=== PATIENT | female | born 1950 | race Hispanic/Latino ===

== ENCOUNTER → 2019-11-29 | Outpatient (CLI) | payer OTHER | END | disposition home or self-care (01) | LOC: OIH 07:33 | PROVIDERS: ATTEND Internal Medicine | DX: I10 Essential (primary) hypertension (principal) | CPT/HCPCS: 71046 ==

== ENCOUNTER → 2022-03-02 | Outpatient (CLI) | payer OTHER | END | disposition home or self-care (01) | LOC: RAH 09:29 | PROVIDERS: ATTEND Internal Medicine | DX: M17.0 Bilateral primary osteoarthritis of knee (principal); M71.20 Synovial cyst of popliteal space [Baker], unspecified knee ==

== ENCOUNTER 2023-11-29 07:18 | Emergency (ER) | payer OTHER ==
[~2023-11-29] VITALS: Ht 149.9 cm; Wt 55.3 kg
[2023-11-29 07:54] LABS: BASOPHILS # (AUTO) 0.02 K/uL (0.00-0.20); BASOPHILS % (AUTO) 0.2 % (0.0-5.0); EOSINOPHILS # (AUTO) 0.19 K/uL (0.00-0.70); EOSINOPHILS % (AUTO) 1.6 % (0.0-8.0); HEMATOCRIT 35.3 % (36-48); IMMATURE GRANULOCYTE ABSOLUTE 0.05 K/uL (0-1); LYMPHOCYTES # (AUTO) 2.1 K/uL (1.0-4.8); MEAN CORPUSCULAR HGB CONC 32.6 g/dL (32.0-36.0); MEAN CORPUSCULAR VOLUME 89.1 fL (79-99); MONOCYTES # (AUTO) 0.6 K/uL (0.1-1.0); MONOCYTES % (AUTO) 4.8 % (3.0-13.0); NEUTROPHILS # (AUTO) 9.3 K/uL (1.8-7.7); PLATELET COUNT (AUTO) 258 K/uL (130-400); RED BLOOD CELL COUNT(AUTO) 3.96 MIL/uL (4.00-5.50); RED CELL DISTRIBUTION WIDTH 13.5 % (11.0-15.5); WHITE BLOOD COUNT (AUTO) 12.2 K/uL (4.8-10.8)
[2023-11-29 08:06] LABS: CREATININE 0.8 mg/dL (0.5-1.5)
[2023-11-29 08:10] LABS: ALBUMIN 3.6 g/dL (3.5-5.0); BILIRUBIN,TOTAL 0.5 mg/dL (0.2-1.0); TOTAL PROTEIN, SERUM 7.5 g/dL (6.0-8.3)
[2023-11-29] MEDS: KETOROLAC 30MG VIAL (30MG/ML) IVP ONE (09:57)
[2023-11-29 10:44] LABS: APPEARANCE,URINE CLOUDY (CLEAR); BILIRUBIN,URINE NEGATIVE (NEGATIVE); COLOR,URINE LIGHT-YELLOW (YELLOW); GLUCOSE, URINE (UA) >=1000 mg/dL (NEGATIVE); KETONES,URINE 20 mg/dL (NEGATIVE); LEUKOCYTE ESTERASE ,URINE 500 Leu/uL (NEGATIVE); NITRATE,URINE NEGATIVE (NEGATIVE); OCCULT BLOOD,URINE NEGATIVE (NEGATIVE); PH,URINE 7.5 (5.0-8.0); PROTEIN,URINE 10 mg/dL (NEGATIVE); UROBILINOGEN,URINE 0.2 mg/dL (0.2-1.0)
[2023-11-29 11:08] LABS: ADD UA MICROSCOPIC YES
[2023-11-29 11:12] LABS: BACTERIA,URINE FEW /HPF (None Seen); MUCUS,URINE RARE LPF (None Seen); SQUAMOUS EPITHELIAL CELL,UR FEW /HPF (0-2); TRANSITIONAL EPI CELLS,URINE RARE /HPF (None Seen); WBC CLUMP FEW /HPF (0-1); WBC,URINE >100 /HPF (0-1)
[2023-11-29 11:58] VITALS: BP 154/67; PULSE 73; RESP 18; O2SAT 98
[2023-11-29] MEDS ORDERED: NITR100C PO (12:09)
== END 2023-11-29 12:44 | disposition home or self-care (01) ==
LOC: EDH 07:18
DX: N39.0 Urinary tract infection, site not specified (principal); R10.9 Unspecified abdominal pain; E11.9 Type 2 diabetes mellitus without complications; E78.00 Pure hypercholesterolemia, unspecified; I10 Essential (primary) hypertension; Z90.710 Acquired absence of both cervix and uterus; Z85.3 Personal history of malignant neoplasm of breast
CPT/HCPCS: 99285; 74176; 96374; 71045; 84484 ×2; 80053; 83690; 85025; 87077; 87088; 87186; 81001; 36415; 93005; J1885

== ENCOUNTER 2023-11-30 19:36 | Observation (INO) | payer OTHER ==
[~2023-11-30] VITALS: Ht 149.9 cm; Wt 55.0 kg
[~2023-11-30 19:36] MED LIST: NITR100C PO
[2023-12-01] VITALS (23 sets, daily range): BP systolic 146–173; BP diastolic 55–90; PULSE 88–102; RESP 16–19; O2SAT 96–98
[2023-12-01] MEDS: FAMOTIDINE 20MG TAB PO ONE (03:09)
[2023-12-01] MEDS: LIDOCAINE HCL 2% VISCOUS 15 ML UDCUP PO ONE (03:09)
[2023-12-01] MEDS: MAG/ALUM/SIMETH 30 ML UDCUP PO ONE (03:09)
[2023-12-01] MEDS: DICYCLOMINE HCL 10 MG/5 ML ML PO SCH (03:09)
[2023-12-01] MEDS: METOCLOPRAMIDE 10 MG TABLET PO ONE (03:09)
[2023-12-01] MEDS: ONDANSETRON ODT 4MG TAB SL ONE ×2 (04:43→06:25)
[2023-12-01 06:35] LABS: BASOPHILS # (AUTO) 0.01 K/uL (0.00-0.20); BASOPHILS % (AUTO) 0.1 % (0.0-5.0); IMMATURE GRANULOCYTE ABSOLUTE 0.05 K/uL (0-1); LYMPHOCYTES # (AUTO) 0.6 K/uL (1.0-4.8); LYMPHOCYTES % (AUTO) 5.7 % (21.0-51.0); MEAN CORPUSCULAR HEMOGLOBIN 29.4 pg (27.0-33.0); MEAN CORPUSCULAR VOLUME 86.4 fL (79-99); MONOCYTES # (AUTO) 0.7 K/uL (0.1-1.0); MONOCYTES % (AUTO) 6.2 % (3.0-13.0); NEUTROPHILS # (AUTO) 9.3 K/uL (1.8-7.7); NEUTROPHILS % (AUTO) 87.5 % (40.0-77.0); PLATELET COUNT (AUTO) 248 K/uL (130-400); RED BLOOD CELL COUNT(AUTO) 4.05 MIL/uL (4.00-5.50); RED CELL DISTRIBUTION WIDTH 13.2 % (11.0-15.5); WHITE BLOOD COUNT (AUTO) 10.7 K/uL (4.8-10.8)
[2023-12-01 07:12] LABS: ALBUMIN 3.3 g/dL (3.5-5.0); BILIRUBIN,TOTAL 3.5 mg/dL (0.2-1.0); CREATININE 0.6 mg/dL (0.5-1.5); POTASSIUM 3.9 mmol/L (3.5-5.1)
[2023-12-01] MEDS: KETOROLAC 30MG VIAL (30MG/ML) IVP ONE (08:21)
[2023-12-01] MEDS: KETOROLAC 30MG VIAL (30MG/ML) ONE (08:21)
[2023-12-01] MEDS: 1/2 NS 1000ML 1,000 ML IV SCH (09:58)
[2023-12-01] MEDS ORDERED: 0.9%NACL 50ML IV SCH (10:00)
[2023-12-01] MEDS ORDERED: ONDANSETRON 4MG INJ IVP PRN (10:00)
[2023-12-01] MEDS: ZOSYN 3.375GM +NS 50ML IVPB SCH (10:04)
[2023-12-01] MEDS: INSULIN HUMULIN R 100 UNIT/ML 3ML SQ SCH (12:19)
[2023-12-01] MEDS: HYDROMORPHONE 0.5 MG SYG (0.5MG/0.5ML) IVP PRN (15:31)
[2023-12-01] MEDS ORDERED: BUPIVACAINE/PF 0.5% 30ML VIAL ONE (17:43)
[2023-12-01] MEDS ORDERED: LIDOCAINE PF 100MG/5ML (2%) SYRINGE 5ML ONE (17:49)
[2023-12-01] MEDS ORDERED: MIDAZOLAM HCL 1 MG/ML 2ML VIAL ONE (17:49)
[2023-12-01] MEDS ORDERED: PROPOFOL 10 MG/ML 20ML VIAL IV ONE (17:49)
[2023-12-01] MEDS ORDERED: SUCCINYLCHOLINE CHLORIDE 20 MG/ML 10 ML VIAL ONE (17:49)
[2023-12-01] MEDS ORDERED: ROCURONIUM BROMIDE 10MG/1ML 5ML VL ONE (17:49)
[2023-12-01] MEDS ORDERED: FENTANYL CITRATE PF 50 MCG/1 ML 2ML VIAL ONE (17:50)
[2023-12-01] MEDS ORDERED: IOHEXOL-350 50ML VIAL IV ONE (18:06)
[2023-12-01] MEDS: BUPIVACAINE/EPI/PF 0.5% 30ML VIAL IJ ONE (18:12)
[2023-12-01] MEDS: LABETALOL 20MG SYG IV ONE ×2 (18:30→19:48)
[2023-12-01] MEDS: IOHEXOL-350 50ML VIAL IV ONE (18:33)
[2023-12-01] MEDS ORDERED: NEOSTIGMINE METHYLSULFATE 1MG/ML IV ONE (19:01)
[2023-12-01] MEDS ORDERED: GLYCOPYRROLATE 0.2 MG/ML 5 ML VIAL ONE (19:01)
[2023-12-02] VITALS (8 sets, daily range): BP systolic 120–147; BP diastolic 58–75; PULSE 90–105; RESP 16–18; O2SAT 99
[2023-12-02 06:12] LABS: HEMATOCRIT 32.1 % (36-48); MEAN CORPUSCULAR HEMOGLOBIN 29.7 pg (27.0-33.0); MEAN CORPUSCULAR HGB CONC 33.3 g/dL (32.0-36.0); MEAN CORPUSCULAR VOLUME 89.2 fL (79-99); RED BLOOD CELL COUNT(AUTO) 3.6 MIL/uL (4.00-5.50); RED CELL DISTRIBUTION WIDTH 13.2 % (11.0-15.5); WHITE BLOOD COUNT (AUTO) 9.7 K/uL (4.8-10.8)
[2023-12-02 06:50] LABS: ALBUMIN 2.6 g/dL (3.5-5.0); BILIRUBIN,TOTAL 5.1 mg/dL (0.2-1.0); CREATININE 0.7 mg/dL (0.5-1.5); POTASSIUM 3.6 mmol/L (3.5-5.1); TOTAL PROTEIN, SERUM 6.6 g/dL (6.0-8.3)
[2023-12-02] MEDS: PANTOPRAZOLE 40 MG/VIAL IVP SCH (09:29)
[2023-12-02] MEDS: TRAMADOL HCL 50 MG TABLET PO PRN (09:35)
[2023-12-02] MEDS ORDERED: ATOR10TA69 PO (14:15)
[2023-12-02] MEDS ORDERED: METF-444 PO (14:15)
[2023-12-02] MEDS ORDERED: GLIM1TAB18 PO (14:15)
[2023-12-02] MEDS ORDERED: ASPI-1443 PO (14:15)
[2023-12-02] MEDS ORDERED: LISI10TA24 PO (14:15)
== END 2023-12-02 18:35 | disposition home or self-care (01) ==
LOC: EDH 19:36 → EDHIP 12-01 09:43 → INTOOBSV 12-01 09:43 → 3CH 12-01 14:32
PROVIDERS: ADMIT Internal Medicine; ATTEND Internal Medicine
DX: K80.00 Calculus of gallbladder with acute cholecystitis without obstruction (principal); R10.13 Epigastric pain; E78.00 Pure hypercholesterolemia, unspecified; E11.9 Type 2 diabetes mellitus without complications; I10 Essential (primary) hypertension; R47.01 Aphasia; E80.6 Other disorders of bilirubin metabolism; Z90.12 Acquired absence of left breast and nipple; Z90.710 Acquired absence of both cervix and uterus; Z79.899 Other long term (current) drug therapy; Z79.82 Long term (current) use of aspirin
CPT/HCPCS: 47563; 96365; 96366 ×3; 96375 ×2; 93005; 99285; 84484; 80053 ×2; 83690 ×2; 85025; 82948 ×6; 36415 ×2; 88304; 74300; 76705; 96376; 85027; J1815; A4600; J7030; A4215; C1758; J3010; J0330; J3490 ×3; J2001; J2250; J2704; J1885; J2710; J2543 ×4; J0665; Q9967 ×2; J1170 ×2; A4649 ×2; A4930 ×2; G0378 ×7; C9113; A4223; A4222; 48400